=== PATIENT | female | born 1975 | race African-American/Black ===

== ENCOUNTER 2017-11-27 17:43 | Emergency (ER) | payer OTHER ==
[~2017-11-27] VITALS: Ht 165.1 cm; Wt 64.9 kg
--- NOTE | ~2017-11-27 | EKG ---
[place] [address] [facility] [employer] [place] [address] ELECTROCARDIOGRAM REPORT Name: FABBYJAMESJOSE Pelayo [facility]: [facility] [id number] Admission: 11/27/17 Attend Phys: Discharge: Date of : 79 Report #: [id number] THIS REPORT FOR: //name// [facility] ED Test Date: 2017-11-27 Test Time: 17:54:12 Pat Name: MACKENZIE SEQUEIRA Department: Room: Gender: F [employer]: JESE : 1975 Requested By: Ilya Blanton Order Number: [id number] MD: Mainor Bell Measurements Intervals [place] Rate: 94 P: 75 RI: 120 QRS: 67 QRSD: 82 T: 48 QT: 342 QTc: 428 Interpretive Statements Sinus rhythm No significant abnormality Compared to ECG 03/17/2008 06:05:26 No change Electronically Signed On 11-27-2017 19:32:33 CDT by Mainor Bell [email or web address] <ELECTRONICALLY SIGNED> By: Mainor Bell MD, [facility] 11/27/17 1932 1754 1754 Mainor Bell MD, FACC /EPI
[~2017-11-27 17:43] MED LIST: NOHOMEMEDICATIONS; PHENERGAN 25 MG25 M1 PO
[2017-11-27 18:57] LABS: ABSOLUTE NEUTROPHILS 12.3 thou/uL (1.4-8.2); BASOPHILS 0.2 % (0.0-2.0); EOSINOPHILS 0.4 % (0.0-3.0); HEMATOCRIT 47.7 % (37.0-47.0); HEMOGLOBIN 15.9 gm/dL (12.0-15.0); MCH 30.8 pg (26.0-34.0); MCHC 33.2 g/dL (28.0-37.0); MCV 92.6 fL (80.0-100.0); MONOCYTES 5.5 % (1.0-8.0); PLATELET COUNT 162 thou/uL (150-400); POLYS 87.9 % (36.0-66.0); RBC 5.15 mil/uL (4.20-5.00); RDW 14.8 % (10.5-14.5)
[2017-11-27 19:47] LABS: ANION GAP 12 mmol/L (7-16); BUN 12 mg/dL (7-18); CHLORIDE 106 mmol/L (98-107); CO2 20 mmol/L (21-32); CREATININE 1.3 mg/dL (0.6-1.0); GLUCOSE 111 mg/dL (74-106); POTASSIUM 4.2 mmol/L (3.5-5.1); SODIUM 138 mmol/L (136-145); TROPONIN-I < 0.04 ng/mL (<0.06)
[2017-11-27 19:54] LABS: URINE BILIRUBIN 2+ (Negative); URINE BLOOD 1+ (Negative); URINE CLARITY CLOUDY; URINE COLOR YELLOW; URINE GLUCOSE-RANDOM* TRACE (Negative); URINE KETONES TRACE (Negative); URINE LEUKOCYTES NEGATIVE (Negative); URINE NITRITE NEGATIVE (Negative); URINE PROTEIN (DIPSTICK) 3+ (Negative); URINE SPECIFIC GRAVITY >= 1.030 (1.005-1.035)
[2017-11-27 19:58] LABS: ICTOTEST (BILI CONFIRMATORY) Negative (Negative)
[2017-11-27 20:00] LABS: BACTERIA 1-9 Few /HPF (None Seen); CRYSTALS None Seen /LPF (None Seen); MUCUS >6 Heavy strn/LPF (None Seen); SQUAMOUS >10 Many /LPF (0-3); URINE RBC 3-10 Few /HPF (0-2); URINE WBC 6-15 Few /HPF (0-5)
[2017-11-27 20:01] LABS: FINE GRANULAR CASTS >10 Many /LPF (None Seen); HYALINE CASTS >10 Many /LPF (None Seen)
[2017-11-27 20:08] LABS: ALBUMIN 4.5 g/dL (3.4-5.0); DIRECT BILIRUBIN 0.2 mg/dL (<0.1-0.3); TOTAL BILIRUBIN 1.2 mg/dL (<0.1-1.0); TOTAL PROTEIN 9.5 g/dL (6.4-8.2)
[2017-11-27] MEDS ORDERED: CIPRO500 MG PO (20:59)
[2017-11-27] MEDS ORDERED: FLAGYL500 MG PO (20:59)
[2017-11-27] MEDS ORDERED: IBUPROFEN 600600 M1 PO (20:59)
[2017-11-27] MEDS ORDERED: HYDROCODONE-AP1 EAC6 PO (20:59)
== END 2017-11-27 21:27 | disposition home or self-care (01) ==
LOC: ER 17:43
PROVIDERS: Nurse Practitioner
DX: K52.89 Other specified noninfective gastroenteritis and colitis (principal); N83.202 Unspecified ovarian cyst, left side; N39.0 Urinary tract infection, site not specified; R55 Syncope and collapse; F17.210 Nicotine dependence, cigarettes, uncomplicated

== ENCOUNTER 2018-01-22 12:04 | Emergency (ER) | payer OTHER ==
[~2018-01-22] VITALS: Ht 167.6 cm; Wt 66.2 kg
[~2018-01-22 12:04] MED LIST changes: +CIPRO500 MG PO; +FLAGYL500 MG PO; +HYDROCODONE-AP1 EAC6 PO; +IBUPROFEN 600600 M1 PO
[2018-01-22] MEDS ORDERED: NORCO 5-325 TA1 EACH PO (13:11)
[2018-01-22] MEDS ORDERED: NAPROSYN500 MG PO (13:11)
[2018-01-22 14:28] VITALS: BP 118/86
== END 2018-01-22 14:29 | disposition home or self-care (01) ==
LOC: ER 12:04
DX: M10.9 Gout, unspecified (principal)

== ENCOUNTER 2019-01-11 08:19 | Emergency (ER) | payer OTHER ==
[~2019-01-11] VITALS: Ht 162.6 cm; Wt 73.5 kg
[~2019-01-11 08:19] MED LIST changes: +NAPROSYN500 MG PO; +NORCO 5-325 TA1 EACH PO
[2019-01-11] MEDS ORDERED: MOBIC15 MG PO (09:32)
[2019-01-11 09:57] VITALS: BP 118/81
== END 2019-01-11 09:57 | disposition home or self-care (01) ==
LOC: ER 08:19
DX: S63.592A Other specified sprain of left wrist, initial encounter (principal); F17.210 Nicotine dependence, cigarettes, uncomplicated; Z98.890 Other specified postprocedural states; W10.9XXA Fall (on) (from) unspecified stairs and steps, initial encounter; Y92.89 Other specified places as the place of occurrence of the external cause; Y93.89 Activity, other specified; Y99.8 Other external cause status